=== PATIENT | female | born 1980 | race Caucasian/White ===

== ENCOUNTER 2020-01-03 08:19 | Emergency (ER) | payer OTHER ==
[2020-01-03 08:38] VITALS: BP 118/81
--- NOTE | 2020-01-03 08:50 | UC ---
Respiratory Complaint HPI - HPI Summary HPI Summary: cough x 5 days cough is productive with yellow sputum getting worse since last night, cough is worse with deep breathing, better with rest + fever, chills, body aches, sore throat - History of Current Complaint Chief Complaint: UCRespiratory Stated Complaint: FLU SYMP/CHEST CONGESTION Time Seen by Provider: 01/03/20 08:24 Hx Obtained From: Patient Hx Last Menstrual Period: last month ?: No Onset/Duration: Gradual Onset Timing: Constant Severity Initially: Moderate Severity Currently: Moderate Pain Intensity: 7 Character: Cough: Productive Aggravating Factors: Exertion, Deep Breaths Alleviating Factors: Nothing Associated Signs And Symptoms: Positive: Fever, Chills, URI, Nasal Congestion. Negative: Dyspnea, Wheezing, Dizziness, Calf Pain, Calf Swelling - Allergies/Home Medications Allergies/Adverse Reactions: Allergies Allergy/AdvReac Type Severity Reaction Status Date / Time No Known Allergies Allergy Verified 01/03/20 08:30 Home Medications: Home Medications Acetaminophen [Acetaminophen Extra Strength] 1,500 mg PO ONCE PRN 01/03/20 [ History Confirmed 01/03/20] Ibuprofen TAB* [Advil TAB*] 600 mg PO Q6H PRN 01/03/20 [History Confirmed ] PMH/Surg Hx/FS Hx/Imm Hx Respiratory History: Asthma - Surgical History Surgical History: None - Family History Known Family History: Negative: Diabetes - Social History Alcohol Use: Rare Substance Use Type: None Smoking Status (MU): Never Smoked Tobacco Review of Systems All Other Systems Reviewed And Are Negative: Yes Constitutional: Positive: Fever, Chills, Fatigue Skin: Positive: Negative Eyes: Positive: Negative ENT: Positive: Sore Throat, Nasal Discharge Respiratory: Positive: Cough Cardiovascular: Positive: Negative Is Patient Immunocompromised?: No Physical Exam Triage Information Reviewed: Yes Appearance: Well-Appearing, No Pain Distress, Well-Nourished Vital Signs: Initial Vital Signs Temp 97.7 F 01/03/20 08:31 Pulse 99 01/03/20 08:31 Resp 18 01/03/20 08:31 BP 118/81 01/03/20 08:31 Pulse Ox 100 01/03/20 08:31 Vital Signs Reviewed: Yes Eye Exam: Normal Eyes: Positive: Conjunctiva Clear ENT: Positive: Normal ENT inspection, Hearing grossly normal, Pharynx normal, TMs normal. Negative: Pharyngeal erythema Neck: Positive: Supple, Nontender, No Lymphadenopathy Respiratory: Positive: Chest non-tender, Lungs clear, Normal breath sounds Cardiovascular: Positive: RRR, No Murmur, Pulses Normal Skin Exam: Normal Respiratory Course/Dx - Differential Dx/Diagnosis Provider Diagnosis: Viral illness Discharge ED - Sign-Out/Discharge Documenting (check all that apply): Patient Departure All imaging exams completed and their final reports reviewed: No Studies - Discharge Plan Condition: Stable Disposition: HOME Prescriptions: Benzonatate CAP* [Tessalon 100 MG CAP*] 100 mg PO TID PRN #21 cap PRN Reason: Cough Patient Education Materials: Viral Syndrome (ED) Referrals: J Carlos Madrigal [Primary Care Provider] - If Needed Additional Instructions: most likely Flu no need for antiviral at this time cont. with symptomatic treatment follow up as needed - Billing Disposition and Condition Condition: STABLE Disposition: Home
== END 2020-01-03 08:50 | disposition home or self-care (01) ==
LOC: UCCORT 08:19
DX: B34.9 Viral infection, unspecified (principal); J45.909 Unspecified asthma, uncomplicated; R53.83 Other fatigue; J02.9 Acute pharyngitis, unspecified; J34.89 Other specified disorders of nose and nasal sinuses
CPT/HCPCS: 99212; G0463